=== PATIENT | male | born 1970 | race Caucasian/White ===

== ENCOUNTER 2018-04-12 08:04 | Emergency (ER) | payer OTHER ==
[2018-04-12] MEDS ORDERED: Ketorolac INJ* 60 MG/2 ML VIAL IM ONE (08:21)
[2018-04-12] MEDS ORDERED: oxyCODONE/Acetamin 5/325 MG* TAB PO ONE (08:21)
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
[2018-04-12 17:06] VITALS: BP 139/71
== END 2018-04-12 11:00 | disposition home or self-care (01) ==
LOC: ED 08:04
DX: S93.402A Sprain of unspecified ligament of left ankle, initial encounter (principal); W19.XXXA Unspecified fall, initial encounter; Y93.01 Activity, walking, marching and hiking; Y92.89 Other specified places as the place of occurrence of the external cause; Z87.891 Personal history of nicotine dependence
CPT/HCPCS: 96372; 99282; A9270-GY; J1885